=== PATIENT | male | born 1980 | race Two or more races ===

== ENCOUNTER 2018-11-01 05:23 | Day surgery (SDC) | payer OTHER ==
[2018-10-25 09:24] LABS: ANION GAP 9 (5-19); BLOOD UREA NITROGEN 13 mg/dL (7-20); CALCIUM 9.5 mg/dL (8.4-10.2); CARBON DIOXIDE 29 mmol/L (22-30); CHLORIDE 102 mmol/L (98-107); GLUCOSE 238 mg/dL (75-110); SODIUM 139.7 mmol/L (137-145)
--- NOTE | 2018-10-25 09:55 | RADIOLOGY REPORT (SQ) ---
EXAM DESCRIPTION: CHEST PA/LATERAL COMPLETED DATE/TIME: 10/25/2018 9:42 am REASON FOR STUDY: PRE OP COMPARISON: None. EXAM PARAMETERS: NUMBER OF VIEWS: two views TECHNIQUE: Digital Frontal and Lateral radiographic views of the chest acquired. RADIATION DOSE: NA LIMITATIONS: none FINDINGS: LUNGS AND PLEURA: No opacities, masses or pneumothorax. No pleural effusion. MEDIASTINUM AND HILAR STRUCTURES: No masses or contour abnormalities. HEART AND VASCULAR STRUCTURES: Heart normal size. No evidence for failure. BONES: No acute findings. HARDWARE: None in the chest. OTHER: No other significant finding. IMPRESSION: NO SIGNIFICANT RADIOGRAPHIC FINDING IN THE CHEST. TECHNICAL DOCUMENTATION: JOB ID: [id number] [employer]- All Rights Reserved Reading location - IP/workstation name: [email or web address]
[~2018-11-01 05:23] MED LIST: CEFAZOLIN 2 GM/D5W RTU 2 GM/50 ML RTUPB IV ONE; CEFAZOLIN SODIUM 2 GM in DEXTROSE 5%-WATER 100 ML IV PRN; IBUPROFEN 800 MG in NORMAL SALINE 250 ML IV PRN; LACTATED RINGERS 1000 ML IV PRN; LIDOCAINE 0.5% INJ-PF (5 MG/ML) 50 ML SDV SUBCUT PRN
[2018-11-01] MEDS ORDERED: BUPIVACAINE HCL 0.25 % INJ/PF (2.5 MG/1 ML) 30 ML VIAL ONE (06:38)
[2018-11-01] MEDS ORDERED: DEXAMETHASONE SOD PHOSPHATE INJ 4 MG/1 ML VIAL ONE (06:40)
[2018-11-01] MEDS ORDERED: FENTANYL CITRATE INJ/PF 250 MCG/5 ML AMPULE ONE (06:40)
[2018-11-01] MEDS ORDERED: MIDAZOLAM 2 MG/2 ML INJ ONE (06:40)
[2018-11-01] MEDS ORDERED: PROMETHAZINE HCL INJ 25 MG/1 ML VIAL ONE (06:40)
[2018-11-01] MEDS ORDERED: ONDANSETRON HCL INJ/PF 4 MG/2 ML SDV ONE (06:40)
[2018-11-01] MEDS ORDERED: LIDOCAINE 2% INJ-PF (20 MG/ML) 10 ML AMPUL ONE (06:40)
[2018-11-01] MEDS ORDERED: EPHEDRINE SULFATE INJ 50 MG/1 ML AMPULE ONE (06:40)
[2018-11-01] MEDS ORDERED: PROPOFOL INJ 200 MG/20 ML VIAL IV ONE (06:41)
[2018-11-01] MEDS ORDERED: ACETAMINOPHEN 1,000 MG/100 ML RTUPB IV ONE (06:41)
[2018-11-01] MEDS ORDERED: HYDROMORPHONE HCL INJ/PF 2 MG/ML AMPULE ONE (06:57)
[2018-11-01] MEDS ORDERED: MEPERIDINE HCL/PF INJ 25 MG/1 ML DISP.SYRIN IV PRN (09:09)
[2018-11-01] MEDS ORDERED: DIPHENHYDRAMINE HCL 50 MG/ML VIAL IV PRN (09:09)
[2018-11-01] MEDS ORDERED: PROMETHAZINE HCL INJ 25 MG/1 ML VIAL IV PRN ×2 (09:09)
[2018-11-01] MEDS ORDERED: MORPHINE SULFATE 10 MG/ML INJ IV PRN (09:09)
[2018-11-01] MEDS ORDERED: FENTANYL CITRATE INJ/PF 100 MCG/2 ML AMPUL IV PRN ×2 (09:09)
[2018-11-01] MEDS ORDERED: GLYCOPYRROLATE 1 MG/5 ML SYRINGE ONE (10:11)
[2018-11-01] MEDS ORDERED: ROCURONIUM BROMIDE INJ 50 MG/5 ML VIAL IV ONE (10:11)
[2018-11-01] MEDS ORDERED: SUCCINYLCHOLINE CHLORIDE INJ 200 MG/10 ML VIAL ONE (10:11)
[2018-11-01] MEDS ORDERED: NEOSTIGMINE METHYLSULFATE 10 MG/10 ML VIAL ONE (10:11)
--- NOTE | 2018-11-01 10:15 | Discharge Summary ---
Discharge Summary (SDC) - Discharge Final Diagnosis: Incarcerated umbilical hernia Date of Surgery: 11/01/18 Discharge Date: 11/01/18 Condition: Stable Forms: ASU Anesthesia D/C Instruction, Discharge POC-Surgical Service Referrals: KEVIN RAYMUNDO MD [ACTIVE STAFF] - Discharge Diet: As Tolerated Respiratory Treatments at Home: Deep Breathing/Coughing, Incentive Spirometer Discharge Activity: No Lifting Over 10 Pounds, No Lifting/Push/Pulling Home Care Assistance: None Needed Report the Following to Your Physician Immediately: Shortness of Breath, Nausea, Vomiting, Increase in Pain, Fever over 101 Degrees, Unusual Bleeding, Redness, Swelling, Warmth, Drainage-Foul Smelling
[2018-11-01] MEDS: FENTANYL CITRATE INJ/PF 100 MCG/2 ML AMPUL IV PRN ×2 (10:20→10:25)
[2018-11-01] MEDS ORDERED: FENTANYL CITRATE INJ/PF 100 MCG/2 ML AMPUL ONE (10:23)
--- NOTE | 2018-11-01 10:25 | Operative Report ---
Nonrecallable Operative Report DATE OF SURGERY: 11/01/18 PREOPERATIVE DIAGNOSIS: Incarcerated umbilical hernia POSTOPERATIVE DIAGNOSIS: Incarcerated omentum within umbilical hernia OPERATION: Robot-assisted laparoscopic ventral hernia repair with mesh. SURGEON: KEVIN RAYMUNDO ANESTHESIA: GA TISSUE REMOVED OR ALTERED: None COMPLICATIONS: None apparent ESTIMATED BLOOD LOSS: Minimal PROCEDURE: Drains/implants: 10 x [address] hernia mesh. Procedure in detail: After informed consent was obtained, the patient was brought into the operating room and laid in the supine position. The area of the abdomen was prepped and draped in a normal sterile fashion. A 15 blade scalpel was used to create a left upper quadrant incision. A 5 mm trocar and 5 mm camera was inserted into the abdomen using the Optiview technique under direct laparoscopic visualization. Once the camera and trocar were inserted, gas insufflation was attached, and pneumoperitoneum was achieved. A left lower quadrant 8 mm robotic trocar was placed under direct laparoscopic visualization. Another 12 mm left lateral trocar was placed in similar fashion. The 5 mm trocar was removed and replaced with an 8 mm trocar. Once the trochars were in place, the robot was brought over the patient and docked appropriately. Instruments were placed into the robotic arms, and I assumed my position at the surgeon's console. Attention was turned to the umbilical hernia defect. It was approximately 3 cm in total diameter. There was a large amount of omental fat incarcerated within the hernia. This was reduced using a mixture of sharp dissection, blunt dissection, and electrocautery. Once the omental fat was reduced back into the abdominal cavity the defect was sewn shut using number 1V lock suture in simple running fashion. Next a 10 x [address] hernia mesh was chosen to cover the defect. The mesh was apposed to the anterior abdominal wall using the EPS system. Once this was completed, the mesh was sutured to the anterior abdominal wall using 2-0 V lock suture in simple running fashion. The EPS was removed from the mesh. A final 2-0 V lock suture was used to secure the middle of the mesh to the anterior abdominal wall in simple running fashion. Once this was completed, the hernia mesh was found to lie in very good place. Attention was then turned to closure of the laparoscopic defects. The 8 mm trocar sites were closed using 0 Vicryl suture in simple interrupted fashion with the Endo Close device. The 12 mm trocar site was closed using 0 Vicryl suture in [id number] fashion, with the assistance of the Endo Close device. The trochars were completely removed, pneumoperitoneum was relieved, the sutures were tightened, and attention was then turned to closure of the skin. The overlying skin was closed using 4-0 Vicryl Rapide suture in subcuticular fashion. All sponge, instrument, and needle counts were correct x2. Condition: Stable.
[2018-11-01] MEDS ORDERED: MORPHINE SULFATE 10 MG/ML INJ ONE (10:53)
[2018-11-01] MEDS ORDERED: LORAZEPAM INJ 2 MG/1 ML VIAL ONE (11:09)
[2018-11-01] MEDS ORDERED: HYDROCODONE/ACETAMINOPHEN 10-325 MG TABLET ONE (12:18)
[2018-11-01 17:04] VITALS: BP 115/79
== END 2018-11-01 15:00 | disposition home or self-care (01) ==
LOC: OROUT 05:23
PROVIDERS: ATTEND Surgery
DX: K42.0 Umbilical hernia with obstruction, without gangrene (principal); I10 Essential (primary) hypertension; Z79.899 Other long term (current) drug therapy; Z01.818 Encounter for other preprocedural examination
CPT/HCPCS: 49653; S2900; 36415; 71046; 750; 80048; 86850; 86900; 86901; C1781; J0131; J0330; J0690; J1100; J1170; J1741; J2060; J2250; J2270; J2405; J2550; J2704; J3010; J3490; J7050

== ENCOUNTER 2019-10-26 10:49 | Emergency (ER) | payer OTHER ==
[2019-10-26] MEDS ORDERED: IBUPROFEN 800 MG TABLET PO ONE (11:31)
--- NOTE | 2019-10-26 11:33 | ER Document Report ---
ED Medical Screen (RME) - General Chief Complaint: Headache Stated Complaint: HEADACHE Time Seen by Provider: 10/26/19 11:28 Primary Care Provider: ASHLEY WILSON DO [Primary Care Provider] - Follow up as needed Mode of Arrival: Ambulatory Information source: Patient Notes: 39-year-old newly diagnosed diabetic with hypertension presents emergency department with hypertension and complaining of headache. Reports headache since last night. Reports he recently took his new medications he just received yesterday for his diabetes, metformin, and for his blood pressure-amlodipine. He did not take anything for his headache. Denies fever vomiting diarrhea reports some nausea last night none today. I have greeted and performed a rapid initial assessment of this patient. A comprehensive ED assessment and evaluation of the patient, analysis of test results and completion of the medical decision making process will be conducted by additional ED providers. TRAVEL OUTSIDE OF THE [place] IN LAST 30 DAYS: No - Related Data Allergies/Adverse Reactions: No Known Allergies Allergy (Unverified 10/26/19 11:28) Past Medical History - Past Medical History Cardiac Medical History: Reports: Hx Hypertension Denies: Hx Coronary Artery Disease, Hx Heart Attack Pulmonary Medical History: Denies: Hx Asthma, Hx Bronchitis, Hx COPD, Hx Pneumonia Neurological Medical History: Denies: Hx Cerebrovascular Accident, Hx Seizures Musculoskeltal Medical History: Denies Hx Arthritis - Immunizations Hx Diphtheria, Pertussis, Tetanus Vaccination: Yes Physical Exam - Vital signs Vitals: Temp Pulse Resp BP Pulse Ox 98.7 F 85 16 149/103 H 96 10/26/19 11:10/26/19 11:10/26/19 11:10/26/19 11:27 10/26/19 11:27 Course - Vital Signs Vital signs: Temp Pulse Resp BP Pulse Ox 98.7 F 85 16 149/103 H 96 10/26/19 11:10/26/19 11:10/26/19 11:10/26/19 11:10/26/19 11:27 Doctor's Discharge - Discharge Referrals: ASHLEY WILSON DO [Primary Care Provider] - Follow up as needed
[2019-10-26 12:09] LABS: ABSOLUTE EOSINOPHILS # (AUTO) 0.1 10^3/uL (0.0-0.6); ABSOLUTE LYMPHOCYTES (AUTO) 3.2 10^3/uL (0.5-4.7); ABSOLUTE MONOCYTES (AUTO) 0.6 10^3/uL (0.1-1.4); ABSOLUTE NEUT (AUTO) 7.4 10^3/uL (1.7-8.2); BASOPHILS % (AUTO) 0.2 % (0-2); EOSINOPHILS % (AUTO) 0.5 % (0-6); HEMOGLOBIN 16.3 g/dL (13.5-17.0); LYMPHOCYTES % (AUTO) 28.3 % (13-45); MEAN CORPUSCULAR HEMOGLOBIN 28.8 pg (27.0-33.4); MEAN CORPUSCULAR HGB CONC 34.7 g/dL (32.0-36.0); MEAN CORPUSCULAR VOLUME 83 fl (80-97); MONOCYTES % (AUTO) 5.1 % (3-13); PLATELET COUNT 255 10^3/uL (150-450); RED BLOOD COUNT 5.66 10^6/uL (4.35-5.55); RED CELL DISTRIBUTION WIDTH 13.3 % (11.5-14.0); SEGMENTED NEUTROPHILS % (AUTO) 65.9 % (42-78); TOTAL CELLS COUNTED % (AUTO) 100 %; WHITE BLOOD COUNT 11.2 10^3/uL (4.0-10.5)
[2019-10-26 12:17] LABS: ALKALINE PHOSPHATASE 75 U/L (38-126); ANION GAP 11 (5-19); ASPARTATE AMINO TRANSFERASE 46 U/L (17-59); BILIRUBIN,DIRECT 0.3 mg/dL (0.0-0.4); BILIRUBIN,TOTAL 0.6 mg/dL (0.2-1.3); BLOOD UREA NITROGEN 12 mg/dL (7-20); CALCIUM 9.9 mg/dL (8.4-10.2); CARBON DIOXIDE 29 mmol/L (22-30); CHLORIDE 101 mmol/L (98-107); GLUCOSE 170 mg/dL (75-110); POTASSIUM 4.2 mmol/L (3.6-5.0); TOTAL PROTEIN 8.7 g/dL (6.3-8.2)
[2019-10-26 12:42] LABS: APPEARANCE,URINE CLEAR; BILIRUBIN,URINE NEGATIVE (NEGATIVE); COLOR,URINE STRAW; GLUCOSE, URINE 150 mg/dL (NEGATIVE); KETONES,URINE NEGATIVE (NEGATIVE); LEUKOCYTE ESTERASE,URINE NEGATIVE (NEGATIVE); NITRITE,URINE NEGATIVE (NEGATIVE); PROTEIN,URINE NEGATIVE (NEGATIVE); UROBILINOGEN,URINE NEGATIVE mg/dL (<2.0)
[2019-10-26] MEDS ORDERED: NORMAL SALINE 1000 ML 1,000 ML IV ONE (12:52)
[2019-10-26] MEDS ORDERED: DIPHENHYDRAMINE HCL 50 MG/ML VIAL IV ONE (12:52)
[2019-10-26] MEDS ORDERED: KETOROLAC TROMETHAMINE INJ/PF 30 MG/1 ML SDV IV ONE (12:52)
[2019-10-26] MEDS ORDERED: PROCHLORPERAZINE EDISYLATE INJ 10 MG/2 ML VIAL IV ONE (12:53)
--- NOTE | 2019-10-26 14:50 | ER Document Report ---
Entered by ADRIAN LYMAN SCRIBE 10/26/19 1443 Acting as scribe for:CHEL CAMACHO MD ED Headache - General Chief Complaint: Headache Stated Complaint: HEADACHE Time Seen by Provider: 10/26/19 11:28 Primary Care Provider: ASHLEY WILSON DO [Primary Care Provider] - Follow up as needed Mode of Arrival: Ambulatory Information source: Patient Notes: This 39 year old male patient presents to the emergency department today with complaints of a headache and associated nausea since yesterday. Patient reports that yesterday he was watching a basketball game when his symptoms began. Patient states that his headache feels like a "usual blood pressure headache". Stating that he has been out of his BP meds for around x5-6 weeks but states that he got more filled yesterday. TRAVEL OUTSIDE OF THE [place] IN LAST 30 DAYS: No - Related Data Allergies/Adverse Reactions: No Known Allergies Allergy (Unverified 10/26/19 11:28) Home Medications: Amlodipine. Metformin. "cholesterol med" Past Medical History - General Information source: Patient - Social History Smoking Status: Never Smoker Cigarette use (# per day): No Chew tobacco use (# tins/day): No Frequency of alcohol use: Social Drug Abuse: None Lives with: Family Family History: Reviewed & Not Pertinent Patient has suicidal ideation: No Patient has homicidal ideation: No - Past Medical History Cardiac Medical History: Reports: Hx Hypertension Endocrine Medical History: Reports: Hx Diabetes Mellitus Type 2 - Immunizations Hx Diphtheria, Pertussis, Tetanus Vaccination: Yes Review of Systems - Review of Systems Constitutional: No symptoms reported EENT: No symptoms reported Cardiovascular: No symptoms reported Respiratory: No symptoms reported Gastrointestinal: See HPI, Nausea Genitourinary: No symptoms reported Male Genitourinary: No symptoms reported Musculoskeletal: No symptoms reported Skin: No symptoms reported Hematologic/Lymphatic: No symptoms reported Neurological/Psychological: See HPI, Headaches -: Yes All other systems reviewed and negative Physical Exam - Vital signs Vitals: Temp Pulse Resp BP Pulse Ox 98.7 F 85 16 149/103 H 96 10/26/19 11:27 10/26/19 11:27 10/26/19 11:27 10/26/19 11:27 10/26/19 11:27 Interpretation: Normal - General General appearance: Appears well, Alert - HEENT Head: Normocephalic, Atraumatic, Other - Left frontal/forehead tenderness with percussion and palpation Eyes: Normal Pupils: PERRL Neck: Other - Posterior cervical muscles are tender with palpation, left slightly more than the right. - Respiratory Respiratory status: No respiratory distress Chest status: Nontender Breath sounds: Normal Chest palpation: Normal - Cardiovascular Rhythm: Regular Heart sounds: Normal auscultation Murmur: No - Abdominal Inspection: Normal Distension: No distension Bowel sounds: Normal Tenderness: Nontender Organomegaly: No organomegaly - Back Back: Normal, Nontender - Extremities General upper extremity: Normal inspection. No: Edema General lower extremity: Normal inspection. No: Edema - Neurological Neuro grossly intact: Yes Cognition: Normal Orientation: AAOx4 [place] Coma Scale Eye Opening: Spontaneous [place] Coma Scale Verbal: Oriented [place] Coma Scale Motor: Obeys Commands [place] Coma Scale Total: 15 Speech: Normal - Psychological Associated symptoms: Normal affect, Normal mood - Skin Skin Temperature: Warm Skin Moisture: Dry Skin Color: Normal Course - Re-evaluation Re-evalutation: 10/26/19 14:51 Patient reports his headache is much better. There is still some tenderness to palpate the left forehead muscles and the posterior cervical muscles. - Vital Signs Vital signs: Temp Pulse Resp BP Pulse Ox 98.7 F 85 16 149/103 H 96 10/26/19 11:27 10/26/19 11:27 10/26/19 11:27 10/26/19 11:27 10/26/19 11:27 - Laboratory Result Diagrams: 10/26/19 11:50 10/26/19 11:50 Laboratory results interpreted by me: 10/26/19 10/26/19 10/26/19 11:50 11:50 11:54 WBC 11.2 H RBC 5.66 H Glucose 170 H POC Glucose Total Protein 8.7 H Urine Glucose (UA) 150 H 10/26/19 12:24 WBC RBC Glucose POC Glucose 157 H Total Protein Urine Glucose (UA) Discharge - Discharge Clinical Impression: Muscle tension headache Condition: Stable Disposition: HOME, SELF-CARE Additional Instructions: Tension Headache Your problem has been diagnosed as muscle tension headache. This very common type of headache occurs because of tightness in the muscles of the head and neck. The headache may last hours or days. The treatment of uncomplicated tension headaches is rest and pain medication. Often, the newer antiinflammatory pain medications are prescribed, as these also decrease the irritability of the painful tissues. Muscle relaxers, cold packs, or warm packs are sometimes helpful. Anti-anxiety medication or narcotics are sometimes needed temporarily, but are best avoided in the long run. Your doctor has evaluated your headache problem, and finds no evidence of a serious health problem as a cause for the headache. If your headache becomes more severe, or if new symptoms develop (such as fever, stiff neck, vomiting, or decreasing alertness) you should be re-examined by the physician. Take the medications as prescribed for your headache if needed. Take ibuprofen 600 mg every 8 hours for the next few days. Drink plenty fluids get plenty of rest. Follow-up with your primary care provider if not improving. RETURN TO THE EMERGENCY ROOM IF ANY NEW OR WORSENING SYMPTOMS. Prescriptions: Butalb/Acetaminophen/Caffeine [Fioricet (50-325-40 mg) Tablet] 1 - 2 tab PO Q4H PRN #20 tab PRN Reason: For Headache Referrals: ASHLEY WILSON DO [Primary Care Provider] - Follow up as needed Scribe Attestation: 10/26/19 14:52 I personally performed the services described in the documentation, reviewed and edited the documentation which was dictated to the scribe in my presence, and it accurately records my words and actions. I personally performed the services described in the documentation, reviewed and edited the documentation which was dictated to the scribe in my presence, and it accurately records my words and actions.
[2019-10-26 14:59] VITALS: BP 136/82
== END 2019-10-26 15:06 | disposition home or self-care (01) ==
LOC: ER 10:49
DX: G44.209 Tension-type headache, unspecified, not intractable (principal); R11.0 Nausea; I10 Essential (primary) hypertension; E11.9 Type 2 diabetes mellitus without complications; Z79.84 Long term (current) use of oral hypoglycemic drugs
CPT/HCPCS: 99284; 96361; 96374; 96375; 36415; 82962; 85025; 80053; 81001; J1200; J1885; J0780; J7030